=== PATIENT | male | born 1980 | race Caucasian/White ===

== ENCOUNTER 2020-08-14 08:00 | Observation (INO) ==
--- NOTE | 2020-07-25 11:52 | Anesthesiology Consultation ---
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 Return from travel will be > 2 weeks prior to DOS. Uses PPE. No known COVID-19 positive contacts or current COVID-19 related symptoms. Surgeon arranging preop COVID testing (scheduled 07/12; S). Awaiting results. Chart Review Chart Review: Acceptable Risk for Surgery and Patient NOT seen in Pre Admission Testing History Surgery Operation Date: 08/14/20 09:20 Proposed Procedures p Robotic Laparoscopic Ventral Hernia Repair - Red Trevino MD Height/Weight Height: 5 ft 10 in Weight: 102.058 kg Allergies Allergy/AdvReac Type Severity Reaction Status Date / Time No Known Allergies Allergy Verified 07/25/20 11:09 Medications Home Medications Medication Instructions Recorded Confirmed Last Taken cyanocobalamin (vitamin B-12) 1,000 mcg PO QAM 07/25/20 07/25/20 Unknown [Vitamin B-12] Past Medical History Medical History History of depression remote hx History of high blood pressure Obesity Past Family History Family History Father Family history of diabetes mellitus Mother Family history of diabetes mellitus Past Surgical History Surgical History History of cholecystectomy History of gastric bypass History of placement of ear tubes Childhood Social History Smoking Status: Never smoker Do You Dip or Chew Tobacco: No Hx Alcohol Use: Yes Alcohol type: beer alcohol intake frequency: a few times a week Alcohol Intake Frequency Comment: ON WEEKENDS substance use type: does not use
[~2020-08-14 08:00] MED LIST: LR 15ML/HR IV SCH; MIDAZOLAM HCL 1 MG/ML 2ML VIAL ONE; ceFAZolin 2000MG 2,000 MG/15 ML SYR IV SCH; fentaNYL citrate 100 MCG/2 ML VIAL ONE
[2020-08-14] MEDS ORDERED: ATROPINE SULFATE 0.1 MG/ML 10ML SYR IV PRN (09:27)
[2020-08-14] MEDS ORDERED: LABETALOL HCL IV 5 MG/ML 20ML IV PRN (09:27)
[2020-08-14] MEDS ORDERED: ONDANSETRON INJ 2 MG/ML 2 ML VIAL IV PRN ×2 (09:27→17:35)
--- NOTE | 2020-08-14 12:02 | History & Physical Bridge Note ---
Date of Service August 14, 2020 History & Physical Bridge Note I have examined the patient, reviewed the History & Physical and in the interval since the performance of the History & Physical I have noted the following changes of clinical significance: no changes noted
[2020-08-14] MEDS ORDERED: BUPIVACAINE 0.5 % 5 MG/1 ML MPF 30ML VIAL ONE (12:06)
[2020-08-14] MEDS ORDERED: GLYCOPYRROLATE 0.2 MG/ML VIAL ONE (12:51)
[2020-08-14] MEDS ORDERED: DEXAMETHASONE SOD INJ 4 MG/ML VIAL ONE (12:51)
[2020-08-14] MEDS ORDERED: LIDOCAINE HCL 2% 2 ML VIAL/AMP(20MG/ML) INFIL ONE (12:51)
[2020-08-14] MEDS ORDERED: ONDANSETRON INJ 2 MG/ML 2 ML VIAL ONE (12:51)
[2020-08-14] MEDS ORDERED: ROCURONIUM BROMIDE 10 MG/ML 5 ML VIAL IV ONE ×5 (12:51→15:16)
[2020-08-14] MEDS ORDERED: PROPOFOL IV EMULSION 10 MG/ML 20 ML VIAL IV ONE (12:51)
[2020-08-14] MEDS ORDERED: NEOSTIGMINE METHYLSULFATE 5 MG/5 ML SYR ONE (12:51)
[2020-08-14] MEDS ORDERED: fentaNYL citrate 100 MCG/2 ML VIAL ONE (14:38)
--- NOTE | 2020-08-14 16:00 | Post Operative Brief Note ---
Immediate Post Op Note v1 Date of Surgery August 14, 2020 Pre & Post Diagnosis Operation Date: 08/14/20 09:50 Pre-Op Diagnosis: Ventral Hernia without Obstruction or Gangrene Post-Op Diagnosis: Ventral Hernia without Obstruction or Gangrene I identified the patient and participated in the time-out.: Yes Procedure Operation Date: 08/14/20 09:50 Actual Procedures p Robotic Assisted Laparoscopic Ventral Hernia Repair with Mesh (Not Applicable) - Red Trevino MD Surgeon Red Trevino MD Polisher Hand None Estimated Blood Loss 10 Findings Consistent with Post-Op Diagnosis
[2020-08-14] MEDS: fentaNYL citrate 100 MCG/2 ML VIAL IV PRN ×4 (16:18→16:35)
[2020-08-14] MEDS ORDERED: HYDROmorphone INJ 0.5 MG/0.5 ML SYR IV STA (16:37)
[2020-08-14] MEDS ORDERED: HYDROmorphone INJ 1 MG/ML SYRINGE ONE (16:38)
--- NOTE | 2020-08-14 17:03 | Anesthesiology Progress Note ---
Date of Service August 14, 2020 Anesthesia Post Procedure Vital Signs Vital Signs: Temp Pulse Pulse Resp BP BP Pulse Ox 08/14/20 16:50 86 16 158/97 H 98 08/14/20 16:40 85 14 152/97 H 95 08/14/20 16:30 90 14 161/99 H 99 08/14/20 16:20 88 20 169/96 H 97 08/14/20 16:15 96 H 19 143/94 H 98 08/14/20 16:11 36.7 C 96 H 17 150/93 H 100 08/14/20 08:19 36.7 C 76 18 151/96 H 99 Pain Intensity Abdomen: Pain Intensity: 3 Transfer of Care Handoff Completed per policy Notes Mental Status: alert / awake / arousable Patient Amnestic to Procedure: Yes Nausea / Vomiting: adequately controlled Pain: adequately controlled Airway Patency, RR, SpO2: stable & adequate BP & HR: stable & adequate Hydration State: stable & adequate Anesthetic Complications: no major complications apparent and Pt Satisfied with anesthetic care
[2020-08-14] MEDS ORDERED: MoRPHine SULFATE 4 MG/ML 1 ML CARP\\VIAL IV PRN (17:35)
[2020-08-14] MEDS ORDERED: ACETAMINOPHEN 325 MG TAB PO PRN (17:58)
[2020-08-14] MEDS: oxyCODONE/ACETAMINOPHEN 5mg/325mg TAB PO PRN (20:00)
--- NOTE | 2020-08-14 21:47 | Operative Report (OR) ---
DATE OF OPERATION: 08/14/2020 PREOPERATIVE DIAGNOSES: Ventral hernia and umbilical hernia. POSTOPERATIVE DIAGNOSES: Ventral hernia and umbilical hernia. PROCEDURE: Laparoscopic ventral hernia and umbilical hernia repair with extensive lysis of adhesions. SURGEON: Red Trevino MD. MEDICAL BILLING AND CODING SPECIALIST: Ciara Francis PA-C. FINDINGS: The patient had a 2 cm defect located approximately 4 cm above the umbilicus. There was a less than 0.5 cm defect underneath the umbilicus, but then there was another 8 mm defect superior to that with only a few millimeter skin bridge between those two. There were extensive adhesions of the small bowel to the anterior abdominal wall, especially at the edges of the more superior ventral hernia defect. The small bowel was also adhesed within the hernia sac. In dissecting the densest of the adhesions, it was difficult to tell whether the tissue on the small bowel was scar tissue or whether there had been disruption of the serosa and so I oversewed that area. TECHNIQUE: The patient was given a general anesthetic and the area was prepped and draped in the usual sterile fashion. The site 16 cm lateral to the umbilicus and just above that level was chosen. The skin was anesthetized with 1% Xylocaine. Skin incision was made and was carried down through the subcutaneous tissue. The fascia was identified, incised, and the muscle was split. The peritoneum was then able to be identified. It was grasped with 2 hemostats, incised, and the introducer was placed bluntly. The abdomen was then insufflated to a pressure of 15 mmHg with carbon dioxide. The Willard was secured. The sites superior and inferior to that first incision measuring approximately 9 cm in each direction were chosen and the skin was anesthetized and the introducers were placed under direct vision. The camera port was docked and targeting was performed. The superior and inferior introducers were docked and the introducers were placed under direct vision. I then attended the console. The dissection began by peeling omentum away from the anterior abdominal wall beneath his midline scar. I then worked lateral to medial beginning on the left. There was dense adhesion of small bowel, which was taken down millimeter by millimeter first superiorly, then inferiorly. I was then able to establish a plane between the small bowel and the peritoneum in the mid portion of all of those adhesions. That allowed me to place downward blunt traction superiorly. That allowed me to then see behind that where there were more flimsy adhesions, which were divided. I then worked inferiorly and was able to identify the superior aspect of the hernia defect. I the adhesions away from there. That allowed me to work into the hernia defect where there was a loop of small bowel, which was not quite as densely adherent as it was to the superior portion of the defect, but I was able to place some inward traction and divide some of those adhesions. That freed up the inferior aspect of those adhesions and I was able to work on that side and divide some adhesions to the anterior abdominal wall working inferior to superior and identify the inferior border of the hernia defect. I then was able to see some of the flimsy adhesions on the right side of the hernia defect. That freed up additional adhesions on the inferior side and then inward pressure was placed over the hernia, which imbricated the hernia sac, which allowed me to see the final adhesions of the small bowel. These were taken down millimeter by millimeter very carefully until it was completely freed. The serosa was inspected and there was no serosal disruption. The only adhesions left now were the ones that were the most densely adhesed and those were superior to the edge of the fascial defect. I dissected and opened the peritoneum medial to that and dissected the peritoneum off the overlying fascia with the intent of keeping the peritoneum with the small bowel adhesions. That was accomplished and eventually that loop of bowel was completely freed. It was that area that had some scar tissue adherent to the wall; however, it was unclear as to whether or not there was serosal disruption and so I oversewed that area with interrupted Lembert sutures of 3-0 Vicryl. The entire area in question was oversewn. There was never a mucosal disruption. I then investigated the umbilical hernia. The umbilical hernia was very small. I opened the peritoneum on the left side and worked then medially peeling the hernia sac back into the abdomen. That exposed the 7-8 mm defect superior to that, which was also exposed. Those were closed together with 0 nonabsorbable V-Loc suture. I then closed the more superior larger defect with the 0 V-Loc as well. That was done in 2 layers. I then measured a distance of approximately 7 cm and placed a 12.5 cm mesh covering all of the defects adequately. This was secured to the anterior abdominal wall with a 2-0 absorbable V-Loc. The mesh was in good position. The areas of the omentum that had been dissected were inspected. There was no bleeding. There had been one area of bleeding that was identified that was controlled with cautery, but that was earlier in the case. The area where I had oversewn the serosa was inspected and was intact. The robot was undocked and the gas was allowed to escape and the introducers were removed. The fascia of the center incision was closed with interrupted 0 Vicryl. The skin of all the 4 incisions was closed with 4-0 Monocryl in either an interrupted or running subcuticular fashion. The skin was further anesthetized and cleansed, dried and benzoin and Steri-Strips applied. Estimated blood loss was 10 mL. Sponge, needle and instrument counts were correct prior to closure. The physician law office assistant was present for helping with exchange of instruments, passage of suture and closure. I attest to the content of the Intraoperative Record and any orders documented therein. Any exception s are noted below.
[2020-08-15] MEDS: oxyCODONE/ACETAMINOPHEN 5mg/325mg TAB PO PRN (03:53)
--- NOTE | 2020-08-15 09:03 | Surgery Progress Note ---
Date of Service August 15, 2020 Assessment & Plan (1) Incisional hernia: POD # 1 s/p robotic assisted incisional hernia repair with mesh -avss - pain controlled - no n/v Plan: Okay for discharge around lunch if pain controlled with oral meds and ambulating okay abdominal binder discharge instructions reviewed rx for Percocet sent to pharmacy f/u surgery office as scheduled Admission and Anticipated Discharge Date Admission Date: August 14, 2020 Subjective feeling well, pain controlled with percocet and tylenol no n/v tolerated diet urinating fine no chest pain/sob has not ambulate hallway Physical Exam Constitutional: WD/WN, vitals as above Respiratory: normal respiratory effort; no respiratory distress and no labored breathing Gastrointestinal (Abdomen): Inspection/Auscultation: abdomen normal to inspection and + abdominal surgical incision (dry with steri strips); abdomen not distended Percussion/Palpation: + abdomen tender (expected postop at incisions and midline) and abdomen soft; no guarding and abdomen not rigid Skin: no rashes, warm and dry Psychiatric: A+Ox3, euthymic affect Results & Data ([facility]) Vital Signs (Past 12 Hours) Vital Signs Temp Pulse Resp BP Pulse Ox 08/15/20 07:42 37.5 C 88 16 128/79 97 08/15/20 03:48 37.0 C 96 H 18 146/77 H 96 08/14/20 23:04 37.1 C 100 H 18 138/82 96
--- NOTE | 2020-08-16 17:18 | Discharge Summary ---
Date of Service August 16, 2020 Admission HPI Per Admitting Provider HPI: Sahil comes being seen for further discussion of repair of his ventral hernias. We had seen him back in January and February but due to the Covid crisis we had to delay his surgery. He is now being scheduled for the end of this month. 10 years ago he underwent a gastric bypass procedure via ventral midline incision. Back in December he noticed a bulge in the center of the vertical midline incision above the umbilicus. It did not increase in size prior to that visit and has not increased in size since that visit. He had been doing a lot of cardiac as well as anaerobic avid exercise. It was after initiating that activity that he first noticed the bulge. He continues to reduce spontaneously if he lies supine. There is occasional mild vague discomfort in the area but it is self-limited. There is no associated nausea or vomiting. He has had no fever or chills. He has had no bowel or bladder habit changes. There is no melena or hematochezia. He underwent a CT scan of the abdomen and pelvis previously reviewed with him. It showed a 2.2 x 2.0 cm fascial defect located approximately 4 cm above the umbilicus that at that time contained a small knuckle of small bowel. There was also a tiny fat-containing umbilical hernia. Admission Exam Per Admitting Provider General: Alert in no distress Head: Normocephalic, no masses, lesions, tenderness or abnormalities Neck: Supple, no adenopathy Heart: Regular rate and rhythm Lungs: Chest symmetric with normal AP diameter, no other abnormalities noted, no chest wall tenderness, lungs clear to auscultation Abdomen: Abdomen soft nontender normal bowel sounds and no masses organomegaly: The umbilical hernia is barely palpable Above the umbilicus there can be palpated a small fascial defect with protrusion but it reduces spontaneously and is not tender Back: Back symmetric, no curvature no costovertebral angle tenderness, range of motion is normal Principal Diagnosis Ventral and umbilical hernias Discharge Exam Constitutional: WD/WN, vitals as above Respiratory: normal respiratory effort; no respiratory distress and no labored breathing Gastrointestinal (Abdomen): Inspection/Auscultation: abdomen normal to inspection and + abdominal surgical incision (dry with steri strips); abdomen not distended Percussion/Palpation: + abdomen tender (expected postop at incisions and midline) and abdomen soft; no guarding and abdomen not rigid Skin: no rashes, warm and dry Psychiatric: A+Ox3, euthymic affect Discharge Data Allergies Allergy/AdvReac Type Severity Reaction Status Date / Time No Known Allergies Allergy Verified 08/14/20 08:24 Procedures Performed Operation Date: 08/14/20 09:50 Actual Procedures p Robotic Assisted Laparoscopic Ventral Hernia Repair with Mesh; Lysis of Adhesions(Not Applicable) - Red Trevino MD Hospital Course (1) Incisional hernia: The patient was taken to the operating room and underwent a laparoscopic robotic assisted repair of a ventral and umbilical hernia. Findings at the time of the procedure revealed to hernias 1 measuring approximately 2 cm in the umbilical where there were 2 defects measuring approximately a centimeter. The procedure was done without complication. There was a large amount of small bowel adherent to the undersurface of the fascial defect as well as around the fascial defect. There is were taken down. Postoperative day #1 he was having expected incisional discomfort. He had no nausea or vomiting. He tolerated his diet. He was ambulating. Incisions had no erythema or drainage. Total Time Total Time Spent Total Time Spent (In Minutes): 20 Discharge Plan Discharge Items Patient Disposition: Home - Self-Care Reason For Visit: Ventral Hernia without Obstruction or Gangrene Discharge Diagnosis: Ventral Hernia without Obstruction or Gangrene Activity: Per Instructions section Non-emergency contact: Surgeon Call non-emergency contact if: you have any medication questions, your pain is not controlled, your pain is worsening, your pain is concerning for you, you have a fever, your temperature is above 101, your wound has increased redness, your wound has increased drainage and your wound pain has increased Follow-up/Referrals: Red Trevino MD [Physician] - 09/06/20 8:40 am Kike Akbar MD [Primary Care Provider] - Diet: Regular Addtl Attending Provider Instructions: Post-Surgical ~Discharge Instructions Activity Recommendations: - lifting limitation: (10 pounds for 6 weeks), - exercise/sex/sports limit: (nonstrenuous for 6 weeks), - driving or machine use limit: (none for 1 week), - Shower/bathe limit: (may shower today) Diet: - Resume previous diet SPECIAL CARE INSTRUCTIONS: - May shower today. Let water run over area and pat dry. - Leave steri strips on for one week and then remove - Wear abdominal binder for support - Call the surgeon's office with any questions or concerns - - (ex. temperature higher than 101 degrees F, excessive bleeding or pain). MEDICATIONS: - Resume previous medications unless instructed otherwise by your surgeon. - May alternate extra strength Tylenol (650 mg) with Percocet as needed for pain. Do NOT exceed 4 grams of Tylenol in 24 hours period. Percocet has 325 mg of Tylenol in each pill - Percocet 1 every 4 hours, as needed for moderate to severe pain. FOLLOW UP VISIT: - If not already scheduled, please call the office to schedule a two week follow-up appointment. Office number Pending Studies at Discharge: No Stand-Alone Forms: My [facility] Medications and DC Order Prescriptions: New oxycodone-acetaminophen [Percocet] 5-325 mg tablet 1 tab PO Q4H PRN (Reason: pain) Qty: 18 RF: 0 Continued cyanocobalamin (vitamin B-12) 25 mcg Tablet 1,000 mcg PO QAM RF: 0 Discharge Orders: Discharge Order (Routine); Ordered 08/15/20 Ordered By: Ciara Francis Admission Data Admit Date/Time: 08/14/20 16:15 Attending Provider: Red Trevino Admit Provider: Red Trevino Primary Care Provider: Kike Akbar Other Interventions: Discharge Summary Assessment (RN) Last Done: 08/15/20 12:44
== END 2020-08-15 13:33 | disposition home or self-care (01) ==
LOC: 3N 08:00 → ASU 08:00